=== PATIENT | male | born 1930 | race Caucasian/White ===

== ENCOUNTER 2016-09-07 16:59 | Inpatient (IN) | payer MEDICARE, BC ==
[~2016-09-07] VITALS: Ht 162.6 cm; Wt 59.0 kg
[~2016-09-07 16:59] MED LIST: LOVASTATIN PO; PROSCAR PO
--- NOTE | 2016-09-07 17:00 | NUR ---
Patient and pt's son can not recall the names & dosages of all the home medicines at this time. Patient said that he will text someone for the list of home medicines.
[2016-09-07] MEDS ORDERED: IV NORMAL SALINE 500 ML BAG IV ONE (17:15)
[2016-09-07] MEDS ORDERED: ASPI81TA31 PO (17:22)
[2016-09-07] MEDS ORDERED: FINASTERIDE PO (17:22)
[2016-09-07] MEDS ORDERED: XARELTO PO (17:22)
[2016-09-07 17:27] LABS: BASOPHILS # (AUTO) 0.1 K/uL (0.0-8.0); BASOPHILS % (AUTO) 0.7 % (0.0-2.0); EOSINOPHILS # (AUTO) 0.1 K/uL (0.0-0.7); EOSINOPHILS % (AUTO) 1.2 % (0.0-7.0); HEMATOCRIT 47.2 % (40-50); HEMOGLOBIN 16.2 G/DL (14.0-18.0); LYMPHOCYTES # (AUTO) 0.7 K/UL (0.8-4.8); LYMPHOCYTES % (AUTO) 6.3 % (20.5-51.5); MEAN CORPUSCULAR HEMOGLOBIN 33.1 UUG (27.0-31.0); MEAN CORPUSCULAR HGB CONC 34 g/dL (32.0-37.0); MEAN CORPUSCULAR VOLUME 96.6 FL (82.0-92.0); MONOCYTES # (AUTO) 0.5 K/UL (0.1-1.30); MONOCYTES % (AUTO) 4.3 % (0.0-11.0); NEUTROPHILS # (AUTO) 9.4 K/UL (1.8-8.9); NEUTROPHILS % (AUTO) 87.5 % (38.5-71.5); PLATELET COUNT (AUTO) 243 K/UL (150-450); RED BLOOD CELL COUNT(AUTO) 4.88 MIL/UL (4.7-6.1); WHITE BLOOD COUNT (AUTO) 10.8 K/UL (4.0-11.2)
[2016-09-07 17:38] LABS: CREATININE 0.9 mg/dL (0.6-1.3); POTASSIUM 3.8 mmol/L (3.5-5.1)
--- NOTE | 2016-09-07 17:38 | NUR ---
Extra warm blankets provided, no acute change in comdition seen, still for urine sample
[2016-09-07 17:44] LABS: ALBUMIN 3.6 g/dL (3.4-5.0); BILIRUBIN,DIRECT 0.1 mg/dL (0.0-0.2); BILIRUBIN,TOTAL 0.6 mg/dL (0.2-1.0); TOTAL PROTEIN, SERUM 7.3 g/dL (6.4-8.2)
[2016-09-07 17:45] LABS: NEUTROPHILS % (MANUAL) 79 % (42-75)
[2016-09-07 17:46] LABS: ANISOCYTOSIS 1+; BAND % (MANUAL) 8 % (0-10); EOSINOPHILS % (MANUAL) 1 % (0-8); LYMPHOCYTES % (MANUAL) 8 % (20-40); MONOCYTES % (MANUAL) 4 % (2-10); PLATELET ESTIMATE ADEQUATE
--- NOTE | 2016-09-07 18:35 | NUR ---
No acute chamge in condition seen, patient is resting comfortably in bed with eyes closed. family are at bedside, pending admitting papers from ER registration staff Ekaterina
[2016-09-07 20:00] VITALS: BP 115/71
[2016-09-07] MEDS ORDERED: TEMAZEPAM 15 MG CAPSULE PO PRN (20:00)
[2016-09-07] MEDS ORDERED: ACETAMINOPHEN 325 MG TABLET PO PRN (20:00)
[2016-09-07] MEDS ORDERED: MORPHINE SULFATE 2 MG/1 ML DISP.SYRIN IV PRN (20:00)
[2016-09-07] MEDS ORDERED: MAGNESIUM HYDROXIDE 30 ML LIQUID UDC PO PRN (20:00)
[2016-09-07] MEDS ORDERED: ONDANSETRON 4 MG/2 ML VIAL IV PRN (20:00)
[2016-09-07] MEDS ORDERED: TEMAZEPAM 7.5 MG CAPSULE PO PRN (21:00)
[2016-09-07] MEDS ORDERED: DOCUSATE SODIUM 250 MG CAPSULE PO SCH (21:00)
[2016-09-08] VITALS (10 sets, daily range): BP systolic 88–133; BP diastolic 52–77
[2016-09-08] MEDS ORDERED: DOCUSATE SODIUM 100 MG CAPSULE PO ONE (00:10)
[2016-09-08] MEDS: DOCUSATE SODIUM 100 MG CAPSULE PO SCH ×2 (00:11→20:47)
--- NOTE | 2016-09-08 06:00 | NUR ---
Patient slept well, in no acute distress, voids using the urinal and/or assist to the bathroom. Cooperative, no c/o of discomfort. Call light within reach, bed alarm on. Will continue to monitor.
[2016-09-08] MEDS: PANTOPRAZOLE SODIUM 40 MG TABLET.DR PO SCH (06:27)
[2016-09-08 06:50] LABS: EOSINOPHILS # (AUTO) 0.2 K/uL (0.0-0.7); EOSINOPHILS % (AUTO) 2.1 % (0.0-7.0); HEMATOCRIT 42.7 % (40-50); HEMOGLOBIN 14.5 G/DL (14.0-18.0); LYMPHOCYTES # (AUTO) 1.2 K/UL (0.8-4.8); LYMPHOCYTES % (AUTO) 12.8 % (20.5-51.5); MEAN CORPUSCULAR HEMOGLOBIN 33.1 UUG (27.0-31.0); MEAN CORPUSCULAR HGB CONC 34 g/dL (32.0-37.0); MEAN CORPUSCULAR VOLUME 97.1 FL (82.0-92.0); MONOCYTES # (AUTO) 0.5 K/UL (0.1-1.30); MONOCYTES % (AUTO) 5.3 % (0.0-11.0); NEUTROPHILS # (AUTO) 7.7 K/UL (1.8-8.9); NEUTROPHILS % (AUTO) 79.8 % (38.5-71.5); PLATELET COUNT (AUTO) 212 K/UL (150-450); RED BLOOD CELL COUNT(AUTO) 4.39 MIL/UL (4.7-6.1); RED CELL DISTRIBUTION WIDTH 15.3 % (11.5-14.5); WHITE BLOOD COUNT (AUTO) 9.6 K/UL (4.0-11.2)
[2016-09-08 07:19] LABS: BAND % (MANUAL) 2 % (0-10); EOSINOPHILS % (MANUAL) 3 % (0-8); LYMPHOCYTES % (MANUAL) 14 % (20-40); MONOCYTES % (MANUAL) 7 % (2-10); NEUTROPHILS % (MANUAL) 74 % (42-75)
[2016-09-08 07:20] LABS: ANISOCYTOSIS 1+; PLATELET ESTIMATE ADEQUATE; TOXIC GRANULATION 1+
[2016-09-08 07:21] LABS: *BILIRUBIN,URIN NEGATIVE (NEGATIVE); *BLOOD, URINE 1+ (NEGATIVE); *CLARITY,URINE CLEAR (CLEAR); *COLOR,URINE YELLOW (YELLOW); *KETONES,URINE NEGATIVE (NEGATIVE); *PROTEIN,URINE NEGATIVE (NEGATIVE); *UROBILINOGEN,URINE 0.2 E.U./dl (NORMAL); LEUKOCYTE ESTERASE ,URINE NEGATIVE (NEGATIVE); NITRITE, URINE NEGATIVE (NEGATIVE); UGLUCOSE NEGATIVE (NEGATIVE)
--- NOTE | 2016-09-08 07:30 | NUR ---
RECEIVED PATIENT FROM [employer]OPER [employer], SAFETY CHECK PERFORMED, BED IN LOW POSITION, WHEELS LOCKED,AND SIDE RAILS UP X2
[2016-09-08 07:37] LABS: BACTERIA,URINE NONE SEEN /HPF (NONE SEEN); SQUAMOUS EPITHELIAL CELL,UR FEW /HPF (NONE SEEN); WBC,URINE NONE SEEN /HPF (0-3)
[2016-09-08 07:53] LABS: THYROID STIMULATING HORMONE 2.37 mIU/mL (0.358-3.740)
[2016-09-08 07:55] LABS: ALBUMIN 2.9 g/dL (3.4-5.0); BILIRUBIN,TOTAL 0.7 mg/dL (0.2-1.0); CALCIUM 8.8 mg/dL (8.5-10.1); CREATININE 0.7 mg/dL (0.6-1.3); MAGNESIUM 2.1 mg/dL (1.8-2.4); PHOSPHOROUS 3.2 mg/dL (2.5-4.9); POTASSIUM 3.8 mmol/L (3.5-5.1); TOTAL PROTEIN, SERUM 6.2 g/dL (6.4-8.2)
[2016-09-08] MEDS: ASPIRIN 81 MG TAB.CHEW PO SCH (08:18)
[2016-09-08] MEDS ORDERED: TAMS-3 PO (10:14)
--- NOTE | 2016-09-08 10:35 | NUR ---
BP 88/58 BUT ASYMPTOMATIC WARM AND DRY SKIN WITH SLIGHT DIZZINESS LYING IN BED. WILL OBSERVE
--- NOTE | 2016-09-08 11:06 | NUR ---
BP 112/65 POST AMBULATION WITH PT
--- NOTE | 2016-09-08 11:50 | NUR ---
INFORMED DR GRIJALVA OF DECREASED BLOOD PRESSURES AND DIZZINESS, NO CHANGE IN ORDERS AT THIS TIME. US PERFORMED, AWAITING RESULTS.
[2016-09-08] MEDS ORDERED: NORMAL SALINE FLUSH 10 ML DISP.SYRIN ONE (13:19)
[2016-09-08] MEDS ORDERED: IOHEXOL 350 100 ML INFUS..BTL ONE (13:19)
[2016-09-08] MEDS ORDERED: IV NORMAL SALINE 250 ML IV ONE (13:20)
--- NOTE | 2016-09-08 14:00 | NUR ---
SEEN BY DR AGUILLON WITH ORDER FOR CT ANGIO
--- NOTE | 2016-09-08 16:20 | NUR ---
RESTING IN BED COMFORTABLY CLOSELY MONITORED , FALL RISK
--- NOTE | 2016-09-08 18:53 | NUR ---
GAVE REPORT TO [employer]ENT, SAFETY CHECK, BED IN LOW POSITION, WHEELS LOCKED, SIDE RAILS UP X2
--- NOTE | 2016-09-08 19:00 | NUR ---
Received report from MARCI Ortiz
--- NOTE | 2016-09-08 19:20 | NUR ---
Sleeping during initial rounds but easily arousable when name called. Denies any pain/discomforts. Safety mesaures and fall precaution maintained. Continue care as planned.
[2016-09-08] MEDS ORDERED: ATORVASTATIN 10 MG TABLET PO SCH (21:00)
[2016-09-08] MEDS ORDERED: FINASTERIDE 5 MG PO SCH (21:00)
[2016-09-08] MEDS ORDERED: TAMSULOSIN HCL 0.4 MG CAP.SR.24H PO SCH (21:00)
[2016-09-08] MEDS ORDERED: FINASTERIDE 5 MG TABLET PO SCH (21:00)
[2016-09-09 00:58] VITALS: BP 109/67
[2016-09-09 04:00] VITALS: BP 99/63
--- NOTE | 2016-09-09 05:22 | NUR ---
Slept well. No complaint presented throughout the night. All needs attended and met. Safety measures and fall precaution maintained. No significant event reported all night. Continue care as planned. VSS.
[2016-09-09] MEDS: PANTOPRAZOLE SODIUM 40 MG TABLET.DR PO SCH (06:12)
[2016-09-09 06:47] LABS: CALCIUM 8.9 mg/dL (8.5-10.1); CREATININE 0.8 mg/dL (0.6-1.3); MAGNESIUM 2.2 mg/dL (1.8-2.4); PHOSPHOROUS 3.2 mg/dL (2.5-4.9); POTASSIUM 3.6 mmol/L (3.5-5.1)
--- NOTE | 2016-09-09 06:50 | NUR ---
Report given to MARCI Gorman
[2016-09-09 07:14] LABS: EOSINOPHILS # (AUTO) 0.2 K/uL (0.0-0.7); EOSINOPHILS % (AUTO) 2.1 % (0.0-7.0); HEMATOCRIT 45.7 % (40-50); HEMOGLOBIN 15.9 G/DL (14.0-18.0); LYMPHOCYTES # (AUTO) 1.3 K/UL (0.8-4.8); LYMPHOCYTES % (AUTO) 12.7 % (20.5-51.5); MEAN CORPUSCULAR HEMOGLOBIN 33.4 UUG (27.0-31.0); MEAN CORPUSCULAR HGB CONC 35 g/dL (32.0-37.0); MEAN CORPUSCULAR VOLUME 96.1 FL (82.0-92.0); MONOCYTES # (AUTO) 0.6 K/UL (0.1-1.30); MONOCYTES % (AUTO) 5.2 % (0.0-11.0); NEUTROPHILS # (AUTO) 8.5 K/UL (1.8-8.9); PLATELET COUNT (AUTO) 209 K/UL (150-450); RED BLOOD CELL COUNT(AUTO) 4.76 MIL/UL (4.7-6.1); RED CELL DISTRIBUTION WIDTH 15.4 % (11.5-14.5); WHITE BLOOD COUNT (AUTO) 10.6 K/UL (4.0-11.2)
--- NOTE | 2016-09-09 07:15 | NUR ---
RECEIVED PATIENT FROM [employer]TON [employer]ER, SAFETY CHECK, BED IN LOW POSITION, SIDE RAILS UP X2
[2016-09-09 07:20] LABS: BAND % (MANUAL) 2 % (0-10); EOSINOPHILS % (MANUAL) 5 % (0-8); LYMPHOCYTES % (MANUAL) 16 % (20-40); MONOCYTES % (MANUAL) 5 % (2-10); NEUTROPHILS % (MANUAL) 72 % (42-75)
[2016-09-09 07:21] LABS: ANISOCYTOSIS 1+
[2016-09-09 07:22] LABS: PLATELET ESTIMATE ADEQU
[2016-09-09] MEDS: ASPIRIN 81 MG TAB.CHEW PO SCH (08:07)
[2016-09-09] MEDS ORDERED: LOVASTATIN 10 MG PO SCH (09:00)
--- NOTE | 2016-09-09 10:30 | NUR ---
The patient will be discharged today back home [[address] [place] [address] Zuleta[address] His son, Melanie [ ] is in agreement and in the hospital to pick him up via private car. Provided them with a [facility] booklet and brochures of home health agencies. They opted to use [facility] [ ; ]. Faxed his Rx to [facility] [ ; ]. He will follow-up with his PCP. His RN, Diana, is aware of his discharge plan.
--- NOTE | 2016-09-09 11:01 | NUR ---
DR GOMEZ CHANGED STATUS FROM TELE TO MED/SURG
[2016-09-09 11:34] VITALS: BP 92/61
[2016-09-09] MEDS ORDERED: FLUDROCORTISONE ACETATE 0.1 MG TABLET PO SCH (12:00)
[2016-09-09] MEDS ORDERED: Docusate Sodium PO (12:42)
[2016-09-09] MEDS ORDERED: FLUD0.1T3 PO (12:42)
--- NOTE | 2016-09-09 12:45 | NUR ---
SEEN BY DR CHAVEZ, DISCHARGE ORDERS GIVEN.
[2016-09-09] MEDS ORDERED: MULT-70 PO (12:52)
--- NOTE | 2016-09-09 14:00 | NUR ---
PATIENT DISCHARGED WITH ORDERS FOR HOME HEALTH SERVICES WITH [facility]
== END 2016-09-09 14:30 | disposition home health service (06) | DRG 74 ==
LOC: ER 17:00 → TELE 18:53 → MED 09-09 11:05
PROVIDERS: ADMIT Internal Medicine; ATTEND Internal Medicine
DX: G90.8 Other disorders of autonomic nervous system (principal); E27.40 Unspecified adrenocortical insufficiency; F03.90 Unspecified dementia, unspecified severity, without behavioral disturbance, psychotic disturbance, mood disturbance, and anxiety; E78.5 Hyperlipidemia, unspecified; I10 Essential (primary) hypertension; F43.9 Reaction to severe stress, unspecified; H40.9 Unspecified glaucoma; K59.00 Constipation, unspecified; Z91.81 History of falling; R19.7 Diarrhea, unspecified; N40.0 Benign prostatic hyperplasia without lower urinary tract symptoms; Z86.73 Personal history of transient ischemic attack (TIA), and cerebral infarction without residual deficits; W19.XXXA Unspecified fall, initial encounter; Y92.008 Other place in unspecified non-institutional (private) residence as the place of occurrence of the external cause; R71.8 Other abnormality of red blood cells
CPT/HCPCS: 36415; 70030-TC; 70450; 70496; 71010; 83550; 83735; 84100; 84153; 84443; 85025; 85651; 85730; 86592; 87077; 87086; 93005; 93307; 93880; 97001; A4663; J3490; J7040; J7050; Q9967